=== PATIENT | female | born 1975 | race Caucasian/White ===

== ENCOUNTER 2017-10-18 12:43 | Outpatient (CLI) | payer OTHER | END 2017-10-18 12:44 | disposition home or self-care (01) | LOC: BICULT 12:43 | PROVIDERS: ATTEND Internal Medicine | DX: E04.2 Nontoxic multinodular goiter (principal) | CPT/HCPCS: 76536 ==

== ENCOUNTER 2017-12-09 15:29 | Outpatient (CLI) | payer OTHER | END 2017-12-09 15:30 | disposition home or self-care (01) | LOC: BICMAMMO 15:29 | PROVIDERS: ATTEND Family Medicine | DX: Z12.31 Encounter for screening mammogram for malignant neoplasm of breast (principal) | CPT/HCPCS: 77063; 77067 ==

== ENCOUNTER 2018-12-21 14:10 | Outpatient (CLI) | payer OTHER ==
--- NOTE | 2018-12-21 14:59 | MMO ---
Bilateral MAMMO Bilat Screen [facility]. CLINICAL HISTORY: Patient is 43 years old and is seen for screening. The patient has the following family history of breast cancer: paternal aunt. The patient has no personal history of cancer. VIEWS: The views performed were: bilateral craniocaudal with tomosynthesis; bilateral mediolateral oblique with tomosynthesis; and right exaggerated craniocaudal. FILMS COMPARED: The present examination has been compared to a prior imaging study performed at [facility] on 12/09/2017. MAMMOGRAM FINDINGS: The breasts are heterogeneously dense, which could obscure a lesion on mammography. There are stable benign appearing calcifications seen in the left breast. There are no suspicious masses, suspicious calcifications, or new areas of architectural distortion. IMPRESSION: THERE IS NO MAMMOGRAPHIC EVIDENCE OF MALIGNANCY. A ROUTINE FOLLOW-UP MAMMOGRAM IN 1 YEAR IS RECOMMENDED. THE RESULTS OF THIS EXAM WERE SENT TO THE PATIENT. ACR BI-RADS Category 2 - Benign finding MAMMOGRAPHY NOTE: 1. A negative mammogram report should not delay a biopsy if a dominant of clinically suspicious mass is present. 2. Approximately 10% to 15% of breast cancers are not detected by mammography. 3. Adenosis and dense breasts may obscure an underlying neoplasm.
== END 2018-12-21 14:11 | disposition home or self-care (01) ==
LOC: BICMAMMO 14:10
PROVIDERS: ATTEND Physician Assistant
DX: Z12.31 Encounter for screening mammogram for malignant neoplasm of breast (principal); Z80.3 Family history of malignant neoplasm of breast
CPT/HCPCS: 77063; 77067

== ENCOUNTER 2019-01-06 15:25 | Outpatient (CLI) | payer OTHER ==
--- NOTE | 2019-01-06 16:04 | ULT ---
THYROID ULTRASOUND WITH ESCOBAR SCALE AND DOPPLER COLOR FLOW IMAGING: CLINICAL HISTORY: Multinodular goiter. The patient has previously undergone FNA. COMPARISON: Reference is made to prior imaging from 02/13/2016 ultrasound as well as 03/10/2015 FNA procedure barrie garcia FINDINGS: Redemonstration of a dominant complex nodule of the upper to mid right thyroid lobe, measuring 2.7 cm , grossly stable. There are additional smaller nodules occupying mid to lower right thyroid lobe, huerta bcentimeter in size. Overall volume of the thyroid gland is grossly stable. IMPRESSION: Redemonstration of dominant complex nodule of right upper to mid thyroid lobe. The patient has previ ously undergone fine needle aspiration. Correlate with pathology results. POS: Randy
== END 2019-01-06 15:26 | disposition home or self-care (01) ==
LOC: BICULT 15:25
PROVIDERS: ATTEND Family Medicine
DX: E04.2 Nontoxic multinodular goiter (principal)
CPT/HCPCS: 76536

== ENCOUNTER 2021-03-12 12:05 | Outpatient (CLI) | payer OTHER | END 2021-03-12 12:06 | disposition home or self-care (01) | LOC: BICMAMMO 12:05 | PROVIDERS: ATTEND Physician Assistant | DX: Z12.31 Encounter for screening mammogram for malignant neoplasm of breast (principal); Z80.3 Family history of malignant neoplasm of breast | CPT/HCPCS: 77063; 77067 ==

== ENCOUNTER 2022-08-27 09:56 | Outpatient (CLI) | payer BC | END 2022-08-27 09:57 | disposition home or self-care (01) | LOC: BICRAD 09:56 | PROVIDERS: ATTEND Family Medicine | DX: M54.2 Cervicalgia (principal); M47.812 Spondylosis without myelopathy or radiculopathy, cervical region | CPT/HCPCS: 72040 ==

== ENCOUNTER 2023-06-03 11:56 | Outpatient (CLI) | payer BC | END 2023-06-03 11:57 | disposition home or self-care (01) | LOC: BICMAMMO 11:56 | PROVIDERS: ATTEND Family Medicine | DX: Z12.31 Encounter for screening mammogram for malignant neoplasm of breast (principal); Z80.3 Family history of malignant neoplasm of breast | CPT/HCPCS: 77063; 77067 ==